=== PATIENT | female | born 1960 | race African-American/Black ===

== ENCOUNTER 2017-01-04 19:20 | Emergency (ER) | payer OTHER ==
[~2017-01-04] VITALS: Ht 165.1 cm; Wt 79.5 kg
[2017-01-04 19:21] VITALS: BP 136/82; PULSE 65; RESP 16; TEMP 98.6; O2SAT 98
[2017-01-04] MEDS ORDERED: LAMO150 PO (19:40)
[2017-01-04] MEDS ORDERED: GEOD80CA PO (19:40)
[2017-01-04] MEDS ORDERED: LOSA50TA PO (19:40)
[2017-01-04] MEDS ORDERED: LEXA20TA PO (19:40)
[2017-01-04] MEDS ORDERED: ZIPR20 PO (19:40)
[2017-01-04] MEDS ORDERED: LORA-475 PO (19:41)
[2017-01-04] MEDS ORDERED: VIST25CA PO (20:02)
--- NOTE | 2017-01-04 20:02 | PD ---
HPI Chief Complaint: Medication Refill Request Time Seen by Provider: 19:53 Travel History International Travel<30 days: No Contact w/Intl Traveler<30days: No Traveled to known affect area: No History of Present Illness HPI 56-year-old female complains of insomnia. Patient states that he has been seen by her personal physician and given Ativan 0.5 mg at bedtime for sleep. Patient states that she still had problem insomnia. Patient denies any headache. Patient denies any chest pain or short is of breath. Patient denies abdominal pain. Patient denies any medical complaints today. PFSH Past Medical History Bipolar Disorder: Yes Anxiety: Yes Depression: Yes Cardiovascular Problems: Yes (HTN) Hypertension: Yes Tetanus Vaccination: Unknown Influenza Vaccination: No ?: Not Past Surgical History Section: Yes Hysterectomy: Yes Social History Alcohol Use: No Tobacco Use: No Substance Use: No Allergies-Medications Reported Meds & Prescriptions Reported Meds & Active Scripts Active Reported Ativan (Lorazepam) 2 Mg Tab Unknown Dose PO HS PRN Geodon (Ziprasidone) 80 Mg Cap 80 Mg PO HS Geodon (Ziprasidone) 20 Mg Cap 20 Mg PO AC BREAKFAST Lamictal (Lamotrigine) 150 Mg Tab 150 Mg PO BID Losartan (Losartan Potassium) 50 Mg Tab 50 Mg PO DAILY Lexapro (Escitalopram Oxalate) 20 Mg Tab 20 Mg PO DAILY Review of Systems General / Constitutional: No: Fever Eyes: No: Visual changes HENT: No: Headaches Cardiovascular: No: Chest Pain or Discomfort Respiratory: No: Shortness of Breath Gastrointestinal: No: Abdominal Pain Genitourinary: No: Dysuria Musculoskeletal: No: Pain Skin: No Rash Neurologic: No: Weakness Psychiatric: No: Depression Endocrine: No: Polydipsia Hematologic/Lymphatic: No: Easy Bruising Physical Exam Narrative GENERAL: Well-nourished, well-developed patient. SKIN: Focused skin assessment warm/dry. HEAD: Normocephalic. EYES: No scleral icterus. No injection or drainage. NECK: Supple, trachea midline. No JVD or lymphadenopathy. CARDIOVASCULAR: Regular rate and rhythm without murmurs, gallops, or rubs. RESPIRATORY: Breath sounds equal bilaterally. No accessory muscle use. GASTROINTESTINAL: Abdomen soft, non-tender, nondistended. MUSCULOSKELETAL: No cyanosis, or edema. BACK: Nontender without obvious deformity. No CVA tenderness. Data Data Last Documented VS Vital Signs Date Time Temp Pulse Resp B/P Pulse Ox O2 Delivery O2 Flow Rate FiO2 01/04/17 19:21 98.6 65 16 136/82 98 Room Air MDM Medical Decision Making Medical Screen Exam Complete: Yes Emergency Medical Condition: Yes Differential Diagnosis Differential diagnosis including insomnia, psychological issue. Narrative Course 56-year-old female with insomnia. Patient has been taking Ativan without much relief of the condition. Diagnosis Primary Impression: Insomnia Qualified Code: G47.00 - Insomnia, unspecified type Patient Instructions: General Instructions Additional Instructions: Vistaril as needed. Follow-up with personal physician. Med/Other Pt SpecificInfo: Prescription(s) given Scripts Hydroxyzine Pamoate (Vistaril)25 Mg Cap25 Mg PO HS #10 CAP Ref 0 Prov:Sang Almeida MD 01/04/17 Disposition: 01 DISCHARGE HOME Condition: Stable Sang Almeida MD Jan 04, 2017 20:02
[2017-01-04] MEDS ORDERED: hydrOXYzine PAMOATE 25 MG CAP PO ONE (20:15)
== END 2017-01-04 20:28 | disposition home or self-care (01) ==
LOC: NEPD 19:20
DX: G47.00 Insomnia, unspecified (principal); F31.9 Bipolar disorder, unspecified; F41.9 Anxiety disorder, unspecified; I10 Essential (primary) hypertension; Z79.899 Other long term (current) drug therapy
CPT/HCPCS: 99283; Q0177